=== PATIENT | female | born 1940 | race Caucasian/White ===

== ENCOUNTER 2016-12-22 06:29 | Inpatient (IN) | payer OTHER, BC ==
[~2016-12-22] VITALS: Ht 154.9 cm; Wt 86.8 kg
[~2016-12-22 06:29] MED LIST: ASCORBIC ACID500 M3 PO; COUMADIN4 MG PO; COUMADIN5 MG PO; COUMADIN6 MG PO; DIGITEK250 MC2 PO; ENDOCET 5-3251 EACH PO; FIORICET 50-301 EACH PO; FOLIC ACID1 MG PO; JANTOVEN6 MG PO; LASIX40 MG PO; LOPRESSOR25 MG PO; METOPROLOL TART25 MG PO; MICROZIDE12.5 M1 PO; PROBIOTIC250 MG PO; SENNA PLUS TAB1 EACH PO; TESSALON PERLE100 MG PO; THERAGRAN1 TABLET PO; TRAMADOL HCL50 MG PO; TYLENOL ARTHRI650 MG PO; TYLENOL EXTRA500 MG PO; TYLENOL REGULA325 MG PO; VICODIN 5-3001 EACH PO; WARFARIN SODIUM5 MG PO; ZANTAC150 MG PO
[2016-12-22 07:09] VITALS: BP 140/62
[2016-12-22 07:38] LABS: INTER. NORMALIZED RATIO 1.3
[2016-12-22 07:40] LABS: PROTHROMBIN TIME 13.7 (9.2-11.2)
[2016-12-22 12:44] LABS: MCH 32.4 PG (29.0-34.0); MCHC 31.9 G/DL (30.0-36.0); MCV 101.6 FL (83-99); MEAN PLAT.VOLUME 9.9 uM^3 (9.5-12.4); RBC DIS.WIDTH-CV 12.5 % (11.8-14.6); RBC DIS.WIDTH-SD 46.5 % (39-53); RED BLOOD COUNT 3.15 M/uL (3.80-5.20); WHITE BLOOD COUNT 6.3 K/uL (4.1-10.2)
[2016-12-22 12:46] LABS: PLATELET COUNT 137 K/uL (156-360)
[2016-12-22 15:09] LABS: ANION GAP 8 MEQ/L (2-14); CHLORIDE 104 MEQ/L (99-109); POTASSIUM 4.2 MEQ/L (3.7-5.4); SAMPLE HEMOLYSIS CHECK 0; SAMPLE ICTERIC CHECK 0; SAMPLE LIPEMIA CHECK 0; SODIUM 140 MEQ/L (136-147)
[2016-12-22 15:14] LABS: GFR ESTIMATE (CALCULATED) > 59 mL/min/; GLUCOSE 120 mg/dL (70-99); UREA NITROGEN (BUN) 20 mg/dL (9-23)
[2016-12-22 16:32] VITALS: BP 139/81
[2016-12-22 19:27] VITALS: BP 148/72
[2016-12-23 06:42] LABS: HEMATOCRIT 29.4 % (36.0-46.0); MCV 100.3 FL (83-99)
[2016-12-23 06:55] LABS: INTER. NORMALIZED RATIO 1.3; PROTHROMBIN TIME 13.6 (9.2-11.2)
[2016-12-23 07:02] LABS: ANION GAP 7 MEQ/L (2-14); CHLORIDE 105 MEQ/L (99-109); GFR ESTIMATE (CALCULATED) > 59 mL/min/; GLUCOSE 151 mg/dL (70-99); POTASSIUM 4.2 MEQ/L (3.7-5.4); SAMPLE HEMOLYSIS CHECK 0; SAMPLE ICTERIC CHECK 0; SAMPLE LIPEMIA CHECK 0; SODIUM 138 MEQ/L (136-147); UREA NITROGEN (BUN) 18 mg/dL (9-23)
[2016-12-23 07:06] VITALS: BP 168/72
[2016-12-23 11:52] VITALS: BP 138/67
[2016-12-23 15:04] VITALS: BP 128/60
[2016-12-23 19:52] VITALS: BP 117/65
[2016-12-24 00:06] VITALS: BP 139/68
[2016-12-24 06:15] LABS: MCV 101.1 FL (83-99)
[2016-12-24 06:37] LABS: INTER. NORMALIZED RATIO 1.6; PROTHROMBIN TIME 16.8 (9.2-11.2)
[2016-12-24 06:40] LABS: ANION GAP 6 MEQ/L (2-14); CHLORIDE 104 MEQ/L (99-109); GFR ESTIMATE (CALCULATED) > 59 mL/min/; GLUCOSE 126 mg/dL (70-99); SAMPLE HEMOLYSIS CHECK 0; SAMPLE ICTERIC CHECK 0; SAMPLE LIPEMIA CHECK 0; SODIUM 137 MEQ/L (136-147); UREA NITROGEN (BUN) 21 mg/dL (9-23)
[2016-12-24 07:48] VITALS: BP 117/64
[2016-12-24 12:30] VITALS: BP 103/60
[2016-12-24 16:13] VITALS: BP 129/62
[2016-12-24 23:57] VITALS: BP 118/59
[2016-12-25 08:11] VITALS: BP 123/66
[2016-12-25 08:22] LABS: INTER. NORMALIZED RATIO 1.7; PROTHROMBIN TIME 17.4 (9.2-11.2)
[2016-12-25] MEDS ORDERED: DOCUSATE SODIU100 MG PO (08:38)
[2016-12-25] MEDS ORDERED: ENDOCET 5-3251 EACH PO (08:39)
[2016-12-25] MEDS ORDERED: CELECOXIB200 MG PO (08:39)
== END 2016-12-25 13:55 | disposition home or self-care (01) | DRG 470 ==
LOC: 3EAST 06:29 → 2SOUTH 06:29 → 3EAST 15:50
PROVIDERS: Internal Medicine Cardiovascular Disease; Orthopaedic Surgery; Physician Assistant
PROC: 0SRD0J9 Replacement of Left Knee Joint with Synthetic Substitute, Cemented, Open Approach (ICD-10-PCS; principal; 2016-12-22)
DX: M17.12 Unilateral primary osteoarthritis, left knee (principal); I48.2 Chronic atrial fibrillation; J44.9 Chronic obstructive pulmonary disease, unspecified; I27.2 Other secondary pulmonary hypertension; I34.0 Nonrheumatic mitral (valve) insufficiency; M54.30 Sciatica, unspecified side; E78.5 Hyperlipidemia, unspecified; I10 Essential (primary) hypertension; I51.7 Cardiomegaly; E66.9 Obesity, unspecified; Z68.35 Body mass index [BMI] 35.0-35.9, adult; I73.9 Peripheral vascular disease, unspecified; I49.3 Ventricular premature depolarization; Z96.651 Presence of right artificial knee joint; Z79.01 Long term (current) use of anticoagulants; Z90.710 Acquired absence of both cervix and uterus
CPT/HCPCS: 71020; 73560; 80048; 85014; 85018; 85027; 85610; 93005; 94640; 97530 GO; 97530 GP; C1713; J0131; J0690; J1170; J1650; J2250; J3010; J7030; J7050

== ENCOUNTER 2017-07-14 15:42 | Emergency (ER) | payer OTHER, BC ==
[~2017-07-14] VITALS: Ht 152.4 cm; Wt 75.5 kg
[~2017-07-14 15:42] MED LIST changes: +CELECOXIB200 MG PO; +DOCUSATE SODIU100 MG PO
[2017-07-14 18:28] LABS: HEMATOCRIT 30.1 % (36.0-46.0); HEMOGLOBIN 10.2 G/DL (11.9-15.5); MCH 31.4 PG (29.0-34.0); MCHC 33.9 G/DL (30.0-36.0); MCV 92.6 FL (83-99); PLATELET COUNT 264 K/uL (156-360); RBC DIS.WIDTH-CV 13.7 % (11.8-14.6); RBC DIS.WIDTH-SD 46.5 % (39-53); RED BLOOD COUNT 3.25 M/uL (3.80-5.20); WHITE BLOOD COUNT 7.5 K/uL (4.1-10.2)
[2017-07-14 18:44] LABS: CHLORIDE 101 mEq/L (99-109); POTASSIUM 3.9 mEq/L (3.7-5.4); SODIUM 134 mEq/L (136-147)
[2017-07-14 18:46] LABS: GLUCOSE 116 mg/dL (70-99)
[2017-07-14 18:50] LABS: CREATININE 0.8 mg/dL (0.6-1.3); GFR ESTIMATE (CALCULATED) > 59 mL/min/
[2017-07-14 18:54] LABS: TROP-I INTERPRETATION NEGATIVE; TROPONIN-I < 0.01 ng/mL (0.0-0.30)
[2017-07-14 18:55] LABS: UREA NITROGEN (BUN) 27 mg/dL (9-23)
[2017-07-14 19:04] LABS: INTER. NORMALIZED RATIO 4.5
[2017-07-14] MEDS ORDERED: DOXYCYCLINE HY100 MG PO (20:29)
[2017-07-14 21:15] VITALS: BP 114/78
== END 2017-07-14 21:18 | disposition home or self-care (01) ==
LOC: EME 15:42
PROVIDERS: Emergency Medicine
DX: J40 Bronchitis, not specified as acute or chronic (principal); Z85.42 Personal history of malignant neoplasm of other parts of uterus; Z90.710 Acquired absence of both cervix and uterus; Z79.01 Long term (current) use of anticoagulants; Z88.0 Allergy status to penicillin; Z88.1 Allergy status to other antibiotic agents; Z88.2 Allergy status to sulfonamides; Z87.891 Personal history of nicotine dependence
CPT/HCPCS: 80048; 80053; 84484; 85027; 85379; 85610; 85730; 93005; 99281; 99285